=== PATIENT | female | born 1975 | race Caucasian/White ===

== ENCOUNTER → 2019-07-10 07:48 | Outpatient (CLI) | payer BC, SELFPAY ==
--- NOTE | 2019-07-10 07:53 | BI_ITS ---
MAMMOGRAPHY - BILATERAL SCREENING REASON FOR EXAM: Female, 43 years old. Routine annual screening examination. PERTINENT HISTORY: Non-contributory. TECHNIQUE: Digital bilateral breast karie (3D mammographic acquisition) in the CC and MLO projections. 2-D mediolateral oblique (MLO) and craniocaudad (CC) views of both breasts were obtained. CAD: Full Field Digital Mammography with Computer Added Detection was performed. COMPARISON: Comparison is made with prior study dated June 01, 2016 and December 07, 2014. FINDINGS: Breast Composition: The breasts are heterogeneously dense, which may obscure small masses. There are no dominant masses or suspicious calcifications. Stable benign-appearing bilateral axillary lymph nodes. No other significant abnormalities are identified. There has been no significant change since the prior study. BI/SCREEN MAMM (CAD) W/KARIE BILAT IMPRESSION: Stable bilateral screening mammogram. Yearly follow-up mammogram recommended. (A) ASSESSMENT CATEGORY: BIRADS Category 2: Benign. A letter regarding these results will be sent to the patient by the facility within 30 days. Approximately 10% of breast cancers are not detected by mammography. A normal mammogram should not delay biopsy of a clinically suspicious abnormality. [id number] Electronically Signed: Jonathan Pascal, at 8:57 EDT , Service support ,
== END ==
PROVIDERS: PCP Internal Medicine; Referring Provider Internal Medicine; Visit Provider Internal Medicine
DX: Z12.31 Encounter for screening mammogram for malignant neoplasm of breast (principal)
CPT/HCPCS: 77063; 77067

== ENCOUNTER 2021-07-20 05:28 | Day surgery (SDC) | payer BC, SELFPAY ==
[2021-07-20] VITALS (7 sets, daily range): BP systolic 110–132; BP diastolic 67–75; PULSE 16–76; RESP 16; TEMP 36.2–36.6; O2SAT 93–99; BMI 36.1
[2021-07-20] MEDS: Lactated Ringers 1,000 ML 15 ML IV (05:45)
[2021-07-20 06:18] LABS: Internal QC Validated? YES +Cl - CLEAR BKGD; Pregnancy, Urine Negative Negative
--- NOTE | 2021-07-20 06:30 | COLBX_PTH ---
PATIENT: MARISELA EDWARDS LOC: EN U#:[id number] AGE/SX: 45/F ROOM: RE07/20/[address]: Dr. Lui Nichols DO : 1975 BED: DIS: 07/20/2021 SPEC #: [id number] RECD: 07/20/21 16:14 STATUS: ELVIN REAmy #: [id number] [place]: 07/20/21 06:[address]: Lui Nichols DEPT: SURGICAL PATHOLOGY RECD BY: Tono Curiel ENTERED: 07/21/21 09:02 SP TYPE: COLON BX PAT DR: Dr. Julianna Dawson DO Tissues: A - Ileum, NOS B - COLON BIOPSY Procedures: Surgery Specimen Level IV HEADER OPERATION: Colonoscopy (MAC) PRE-OP DIAGNOSIS: Abdominal pain TISSUE SUBMITTED: A ? Terminal ileum biopsy, B ? Random colon biopsy MICROSCOPIC DIAGNOSIS A. Terminal ileum, biopsy: Fragments of small intestinal mucosa, no pathologic diagnosis. B. Colon, random biopsy: Fragments of colonic mucosa with a few pigment laden macrophages, consistent with melanosis coli. MAYELA:amanda 07/24/2021 MICROSCOPIC DESCRIPTION Slides are reviewed. GROSS DESCRIPTION A - Received in fixative is one container labeled with the patient's name and designated terminal ileum biopsy. The specimen consists of one irregular fragment of light pedersen soft tissue that measures 1 x 0.5 x 0.1 cm. The specimen is totally submitted in one cassette. B - Received in fixative is one container labeled with the patient's name and designated random colon biopsy. The specimen consists of multiple irregular fragments of light pedersen soft tissue that in aggregate measure 2.5 x 1 x 0.1 cm. The specimen is totally submitted in one cassette. / MAYELA:amanda 07/21/2021 TC:5 CPT: 24356 x2
--- NOTE | 2021-07-20 06:39 | PCM.HP.BLA ---
History and Physical Date of Admission: 07/20/21 MARISELA EDWARDS, is a 45 F who presents to the office today for abdominal pain. She has a past history of migraines. She has been tried on multiple medicines with mixed results regarding to the control of her migraines. She does take propranolol on a daily basis as a prophylaxis. She was referred by PCP for evaluation of diarrhea with blood, nausea, abdominal cramping/pain following PO intake. She says randomly she can have episodes of feeling faint, dizziness, and lost consciousness with diarrhea episodes. Occurrence July 2020, March 2021 and April 2021. First two occurrences there was blood, not the April episode. Her normal stools are mostly regular with use of Miralax a couple times a month. Does have history of vasovagal responses. First occurrence was during a period of high stress, the other two episodes were not during an abnormal period of stress. She does have a more stressful life with a son who has special needs. Brother and mother both have history of ulcers of unknown location. Medical history includes disc degeneration (meloxicam), insomnia (trazodone), migraine (ubrelvy, Imitrex, propranolol), anxiety (Ativan), hyperlipidemia, obesity. ROS Const Constitutional: No anorexia, fatigue, fever(s), weight change or sleep problems Eyes Eyes: No change in vision ENT ENT: No abnormal hearing, difficulty swallowing, mouth lesions, tongue swelling or throat swelling Resp Respiratory: No cough or shortness of breath Cardio Cardiology: No chest pain at rest, chest pain with exertion, shortness of breath or dyspnea on exertion Gastro GI: No difficulty swallowing Genitourinary-Female: No difficulty urinating or burning urination Musc Musculoskeletal: No joint pain, joint swelling, muscle weakness or decreased muscle mass Skin Skin: No hair loss in leg, yellowing of the eye, itchy eyes, rash, skin ulcer or skin swelling Neuro Neurology: No abnormal hearing, abnormal movements, confusion, unsteady gait/balance or memory loss Psych Psychiatric: No anxiety, No confusion and No memory loss Endo Endocrine: No fatigue or weight change Aller/Imm Allergy/Immunologic: No itchy eyes, throat swelling or tongue swelling Dheeraj/Lymp Hematologic/Lymphatic: No easy bleeding, easy bruising or enlarged lymph nodes Exam Const General: cooperative and comfortable Nutritional Appearance: average body habitus and well nourished HENMT Head: normal to inspection Ears: hearing grossly normal bilaterally Nose: external nose normal Face and sinus: normal facial exam Mouth: oral mucosae normal Throat: posterior oropharynx normal Eyes General: appearance normal, both eyes and all related structures Neck Neck: normal visual inspection Chest Chest palpation & inspection: normal inspection of the chest and normal palpation of entire chest wall Resp Effort & Inspection: normal respiratory effort Auscultation: Bilateral: Clear to Auscultation Cardio Palpation: normal PMI Rate: regular rate Rhythm: regular rhythm GI Inspection: normal to inspection Auscultation: normal bowel sounds Percussion: normal to percussion Palpation: no hepatosplenomegaly Skin General: no rashes or lesions noted Neuro General: patient alert Extrem General: normal to inspection Psych Affect: normal affect Assessment and Plan Assessment and Plan (1) Abdominal pain: Status: Acute Plan - Dr. Poe Friend, DO: Differential diagnosis for episodic abdominal pain in the setting of diarrhea and bloody stools would be intestinal migraines resulting in ischemic colitis. Inflammatory bowel disease ulcerative colitis greater than Crohn's disease. Also in the differential diagnosis would include Behcet's disease, upper GI bleed with rapid transit secondary to NSAID usage for migraine prophylaxis. She should undergo an upper and lower endoscopy to evaluate her upper lower GI tract. I will put her on Levsin for prophylaxis of the symptoms if it is intestinal migraines which she is high risk for due to her history of migraine disorder of the central nervous system. She is okay with this plan we will also do a biochemical analysis to make sure she is not having any signs of acute or chronic inflammation going including amylase lipase, CMP, CBC, ESR, CRP, immunoglobulins A through G,, protein electrophoresis, ANCA and KELLI. Plan Details Other Medications: New: hyoscyamine sulfate (Levsin/SL) 0.125 mg PO BID-QID 30 days PRN 30 tabs 0RF dyspepsia I have re-examined the patient. There are no clinical changes since date of exam.
--- NOTE | 2021-07-20 07:15 | OP.COLON_ITS ---
Patient Name: Julissa Jackson Procedure Date: 07/20/2021 6:19 AM Date of : 1975 Age: 45 Procedure: Colonoscopy Indications: Screening for colorectal malignant neoplasm Providers: Lui Nichols DO Medicines: See the Anesthesia note for documentation of the administered medications Patient Profile: This is a 45 year old female. Refer to note in patient chart for documentation of history and physical. Last Colonoscopy: none. The patient's first colonoscopy is today. Complications: No immediate complications. Procedure: Pre-Anesthesia Assessment: - Prior to the procedure, a History and Physical was performed, and patient medications and allergies were reviewed. The patient is competent. The risks and benefits of the procedure and the sedation options and risks were discussed with the patient. All questions were answered and informed consent was obtained. Patient identification and proposed procedure were verified by the physician in the pre-procedure area. Mental Status Examination: alert and oriented. Airway Examination: normal oropharyngeal airway and neck mobility. Respiratory Examination: clear to auscultation. CV Examination: normal. Prophylactic Antibiotics: The patient does not require prophylactic antibiotics. Prior Anticoagulants: The patient has taken no previous anticoagulant or antiplatelet agents. ASA Grade Assessment: II - A patient with mild systemic disease. After reviewing the risks and benefits, the patient was deemed in satisfactory condition to undergo the procedure. The anesthesia plan was to use moderate sedation / analgesia (conscious sedation). Immediately prior to administration of medications, the patient was re-assessed for adequacy to receive sedatives. The heart rate, respiratory rate, oxygen saturations, blood pressure, adequacy of pulmonary ventilation, and response to care were monitored throughout the procedure. The physical status of the patient was re-assessed after the procedure. After I obtained informed consent, the scope was passed under direct vision. Throughout the procedure, the patient's blood pressure, pulse, and oxygen saturations were monitored continuously. The Colonoscope was introduced through the anus and advanced to the terminal ileum. The colonoscopy was performed without difficulty. The patient tolerated the procedure well. The quality of the bowel preparation was good. Moderate Sedation: Moderate (conscious) sedation was administered by the endoscopy nurse and supervised by the endoscopist. The patient's oxygen saturation, heart rate, blood pressure and response to care were monitored. Total physician intraservice time was 15 minutes. Scope In: 6:47:31 AM Scope Withdrawal Time 0 hours 13 minutes 2 seconds Scope Out: 7:04:44 AM Total Procedure Duration Time 0 hours 17 minutes 13 seconds Findings: The perianal and digital rectal examinations were normal. A 5 mm anal fissure was found in the anal canal. An area of mildly congested mucosa was found in the rectum, in the sigmoid colon, in the descending colon, in the ascending colon and in the cecum. Biopsies were taken with a cold forceps for histology. Verification of patient identification for the specimen was done. Estimated blood loss was minimal. A scattered area of the terminal ileum was congested. Biopsies were taken with a cold forceps for histology. Verification of patient identification for the specimen was done. Estimated blood loss was minimal. Impression: - Anal fissure. - Congested mucosa in the rectum, in the sigmoid colon, in the descending colon, in the ascending colon and in the cecum. Biopsied. - Congested mucosa in the terminal ileum. Biopsied. Recommendation: - Discharge patient to home. - Resume previous diet. - Continue present medications. - Await pathology results. - Repeat colonoscopy in 5 years for surveillance based on pathology results. Procedure Code(s): --- Professional --- 75096, Colonoscopy, flexible; with biopsy, single or multiple 37312, 59, Moderate sedation services provided by the same physician or other qualified health manager long term care performing the diagnostic or therapeutic service that the sedation supports, requiring the presence of an independent trained observer to assist in the monitoring of the patient's level of consciousness and physiological status; initial 15 minutes of intraservice time, patient age 5 years or older CPT copyright 2017 [employer]. All rights reserved. The codes documented in this report are preliminary and upon inpatient coder review may be revised to meet current compliance requirements. Lui Nichols DO 07/20/2021 7:15:02 AM This report has been signed electronically. Number of Addenda: 1 Note Initiated On: 07/20/2021 6:19 AM Addendum Number: 1 Addendum Date: 01/17/2022 6:14:51 AM MAC was used as sedation for this procedure. Lui Nichols DO 01/17/2022 6:14:56 AM This report has been signed electronically.
--- NOTE | 2021-07-20 07:15 | OP.CCLET_ITS ---
01/17/2022 Julianna Dawson [address] [place] [address] Re : Colonoscopy procedure for Julissa Jackson Dear Dr. Dawson This procedure was performed on June. My impressions and recommendations are as follows: Impressions : - Anal fissure. - Congested mucosa in the rectum, in the sigmoid colon, in the descending colon, in the ascending colon and in the cecum. Biopsied. - Congested mucosa in the terminal ileum. Biopsied. Recommendations : - Discharge patient to home. - Resume previous diet. - Continue present medications. - Await pathology results. - Repeat colonoscopy in 5 years for surveillance based on pathology results. My findings are described in the full procedure note, which is enclosed. If I can be of further assistance, please feel free to contact me at . Sincerely, Lui Friend, 07/20/2021 7:15:02 AM This report has been signed electronically.
== END 2021-07-20 23:59 | disposition home or self-care (01) ==
LOC: EN 05:28 → AC 05:31
PROVIDERS: PCP Internal Medicine; Referring Provider Internal Medicine; Visit Provider Internal Medicine Gastroenterology
PROC: 0DJD8ZZ Inspection of Lower Intestinal Tract, Via Natural or Artificial Opening Endoscopic (ICD-10-PCS; CPT 45378; principal; 2021-07-20 06:25)
DX: Z12.11 Encounter for screening for malignant neoplasm of colon (principal); K60.2 Anal fissure, unspecified; K63.89 Other specified diseases of intestine; K21.9 Gastro-esophageal reflux disease without esophagitis; G43.909 Migraine, unspecified, not intractable, without status migrainosus; F41.9 Anxiety disorder, unspecified; E78.5 Hyperlipidemia, unspecified; E66.9 Obesity, unspecified; Z68.36 Body mass index [BMI] 36.0-36.9, adult; Z79.899 Other long term (current) drug therapy
CPT/HCPCS: 45380; 81025; 88305; J7120; J2405

== ENCOUNTER → 2022-11-09 | Outpatient (CLI) | payer BC, SELFPAY ==
--- NOTE | 2022-11-09 10:19 | BI_ITS ---
MAMMOGRAPHY - BILATERAL SCREENING 3-D TOMOSYNTHESIS REASON FOR EXAM: Female, 47 years old. Routine screening PERTINENT HISTORY: No significant family history. TECHNIQUE: 2-D mammograms and 3-D Tomosynthesis of the breast (s) were performed. CAD was performed. COMPARISON: 06/01/2016 FINDINGS: The breast composition is composed of scattered fibroglandular density. Scattered benign calcifications are seen. No dense spiculated masses or suspicious microcalcifications are identified. No architectural distortion is identified. There is no skin thickening or retraction. There has been no significant change since the prior study. BI/SCRN MAMM (CAD)W/KARIE BILAT IMPRESSION: No mammographic signs of malignancy. Routine yearly mammograms recommended. ASSESSMENT CATEGORY: BIRADS Category 2: Benign. A letter regarding these results will be sent to the patient by the facility within 30 days. FOLLOW UP RECOMMENDATION: Yearly follow up mammogram recommended. (A) Approximately 10% of breast cancers are not detected by mammography. A normal mammogram should not delay biopsy of a clinically suspicious abnormality. Electronically Signed: César Smith MD at 12:46 EDT ,
== END | disposition home or self-care (01) ==
LOC: OPBI 10:17
PROVIDERS: PCP Internal Medicine; Referring Provider Internal Medicine; Visit Provider Internal Medicine
DX: Z12.31 Encounter for screening mammogram for malignant neoplasm of breast (principal)
CPT/HCPCS: 77063; 77067

== ENCOUNTER 2023-01-13 03:18 | Emergency (ER) | payer BC, SELFPAY ==
[2023-01-13 03:19] VITALS: BP 132/76; PULSE 62; RESP 16; TEMP 36.4; O2SAT 98; BMI 38.7
--- NOTE | 2023-01-13 03:36 | EDS_ITS ---
HPI HPI - GI History of Present Illness Chief Complaint: Abd Pain Informant: patient and spouse/S.O. Narrative Narrative: Patient presents with diffuse abdominal burning and just not feeling well for the last few hours, and then suddenly when she was going to lay down she states, she started having vertigo. Lying still helps, she denies knowing any obvious triggers for any of the symptoms. She states she was diagnosed with intestinal migraines that gave her similar discomfort in the past but she does not have episodes very often. She states the symptoms are similar, and she had some of the dizziness/vertiginous feelings like she does now with them in the past as well. She saw Dr. Nichols and as a result of him suggesting intestinal migraines, she was given a prescription for hyoscyamine. Therefore she took 1 of those tonight prior to coming here in addition to some Tums, she states it really seemed to help the abdominal pain which is better now but still present. Some nausea no vomiting. She does not have her contacts in but states that her vision does not seem to be majorly changed. When she was more vertiginous at home, she felt like her hearing was muffled in both ears that is better now. She denies tinnitus, headache, syncope, recent illness, injury to her head, or travel out of the area. [facility] Medical History Abdominal pain Alcohol use Anxiety Gastric reflux History of echocardiogram History of stress test Migraine Non-smoker Vasovagal syncope Wears contact lenses Home Medications meloxicam 15 mg tablet 15 mg PO DAILY PRN foot pain 06/27/20 [History Last Taken Unknown] propranolol 60 mg capsule,24 hr,extended release (Inderal LA) 120 mg PO QHS htn 06/27/20 [History Last Taken 07/16/21] ascorbic acid (vitamin C) 500 mg tablet (Vitamin C) 500 mg PO DAILY 07/18/21 [History Last Taken Unknown] cholecalciferol (vitamin D3) 50 mcg (2,000 unit) capsule (Vitamin D3) 50 mcg PO DAILY 07/18/21 [History Last Taken Unknown] lorazepam 1 mg tablet 1 mg PO DAILY PRN PRN Anxiety 07/18/21 [History Last Taken Unknown] omega-3 fatty acids 1,000 mg PO DAILY 07/18/21 [History Last Taken Unknown] trazodone 50 mg tablet 25 mg PO QHS PRN PRN Sleep 07/18/21 [History Last Taken Unknown] ubrogepant 100 mg tablet (Ubrelvy) 100 mg PO DAILY PRN PRN Migraine Headache 07/18/21 [History Last Taken Unknown] hyoscyamine sulfate 0.125 mg sublingual tablet 0.125 mg PO Q8H PRN abdominal distention #30 tabs 10/24/22 [Rx Last Taken Unknown] meclizine 25 mg tablet 25 mg PO Q8H PRN PRN dizziness or vertigo #20 tabs 01/13/23 [Rx Last Taken Unknown] metoclopramide HCl 10 mg tablet 10 mg PO Q6H PRN nausea and vomiting #20 tabs 01/13/23 [Rx Last Taken Unknown] Allergy/AdvReac Type Severity Reaction Status Date / Time codeine AdvReac Upset Verified 01/13/23 03:18 Stomach Family History Other Asthma Surgical History History of back surgery Social History Smoking Status: Never smoker ROS ROS ED Constitutional Constitutional ED: Denies chills or fever(s) Eyes Eyes: Reports other Details: Chronic photophobia ; Denies change in vision or diplopia ENT ENT ED: Reports as per HPI and other Details: Transient muffled hearing bilaterally ; Denies ear pain, rhinorrhea or sore throat Cardiovascular Cardiovascular: Denies chest pain or palpitations Respiratory/Chest Respiratory/Chest: Denies cough or dyspnea Gastrointestinal Gastrointestinal: Reports abdominal pain and nausea; Denies diarrhea, hematemesis, hematochezia, melena or vomiting Genitourinary Genitourinary ED: Denies dysuria or hematuria Musculoskeletal Musculoskeletal: Denies back pain or neck pain Integumentary Denies abscess or rash Neurologic Neurologic: Denies headache(s), paresthesias or weakness Psychiatric Psychiatric: Reports anxiety; Denies suicidal thoughts EXAM Physical Exam Const Vital Signs: 01/13/23 03:19 Temperature 97.5 F L Temperature Source Temporal Pulse Rate 62 Respiratory Rate 16 Blood Pressure 132/76 H Blood Pressure Mean 94 Pulse Ox 98 Oxygen Delivery Method Room Air Positive well nourished and well developed Constitutional Narrative: Has a cold towel wrapped around her head General Appearance ED: well developed and NAD HEENT Reports TM's clear and moist mucous membranes normocephalic and atraumatic Tympanic Membrane ED: Yes TM's clear Eyes PERRL and EOMs intact bilaterally Neck full ROM, no lymphadenopathy and supple Resp normal respiratory effort and clear to auscultation bilaterally Cardio regular rate, regular rhythm and no murmurs GI non-tender and non-distended Auscultation: normoactive bowel sounds Palpation: soft Back/Spine no CVA tenderness General Back: other FROM Extremity normal to inspection General Extremety ED: Negative for edema, pulses abnormal or tenderness General Extremity: Negative for edema or pulses abnormal Neuro oriented x3, CN's II-XII intact bilaterally and no sensory deficits noted Sensorium / Orientation: awake and alert Motor Exam: strength 5/5 throughout Psych Mood & Affect: anxious Skin no rashes or lesions noted and no wounds MDM MDM MDM Narrative Medical decision making narrative: From [address] Nichols's clinic note about intestinal migraines as well as his colonoscopy report from the same month. Patient describing similar symptoms now. She agrees that it seems similar. I do not think she needs an emergent ancillary work-up. Initially treated her with IV fluids, dicyclomine, meclizine, and IV Reglan. She did a lot better, pain resolved, vertigo resolved, still nauseated so we repeated the Reglan 5 mg along with some Benadryl and now she is feeling better without nausea. She feels well enough to go home. We will write her prescription for meclizine and Reglan to use as needed, she has had adverse reactions to Zofran in the past with worsening of pain/headache. Follow-up as needed she is comfortable with this plan. History & Record Review Additional record(s) reviewed:: Prior outpatient record Discharge Plan Triage Chief Complaint: Abd Pain ED Provider: Jesus Buckner Dx/Rx/DC Orders Clinical Impression: Diffuse abdominal pain, Abdominal migraine Instructions: Abdominal Pain Prescriptions: New meclizine [meclizine] 25 mg tablet 25 mg PO Q8H PRN PRN (Reason: dizziness or vertigo) Qty: 20 0RF metoclopramide HCl [metoclopramide HCl] 10 mg tablet 10 mg PO Q6H PRN (Reason: nausea and vomiting) Qty: 20 0RF No Action propranolol [Inderal LA] 60 mg capsule,extended release 24 hr 120 mg PO QHS meloxicam 15 mg tablet 15 mg PO DAILY PRN (Reason: foot pain) hyoscyamine sulfate 0.125 mg tablet, sublingual 0.125 mg PO Q8H PRN (Reason: abdominal distention) Qty: 30 11RF trazodone 50 mg tablet 25 mg PO QHS PRN PRN (Reason: Sleep) Patient Comments: TAKE 1 TO 2 TABLETS BY MOUTH EVERY DAY AT BEDTIME NEEDED ascorbic acid (vitamin C) [Vitamin C] 500 mg Tablet 500 mg PO DAILY lorazepam 1 mg tablet 1 mg PO DAILY PRN PRN (Reason: Anxiety) Patient Comments: TAKE 1/2 TO 1 (ONE-HALF TO ONE) TABLET BY MOUTH ONCE DAILY NEEDED FOR ANXIETY [place] 3 Fish Oil Capsule 1,000 mg PO DAILY cholecalciferol (vitamin D3) [Vitamin D3] 50 mcg (2,000 unit) Capsule 50 mcg PO DAILY Ubrelvy 100 mg tablet 100 mg PO DAILY PRN PRN (Reason: Migraine Headache) Patient Comments: TAKE 1 TABLET BY MOUTH AT ONSET OF HEADACHE, MAY REPEAT IN 2 HOURS IF NOT GONE. MAX 2 TABS PER 24 HOURS Primary Care Provider: Julianna Dawson Referrals: Julianna Dawson DO [Primary Care Provider] - (Or Dr. Nichols as needed if not improving after several days) Disposition Disposition: Home, Self Care
[2023-01-13] MEDS: Meclizine HCl 25 MG Tablet PO (03:45)
[2023-01-13] MEDS: Metoclopramide 10 MG/2 ML Vial 5 MG IV ×2 (03:45→05:12)
[2023-01-13] MEDS: Dicyclomine 10 MG Capsule PO (03:46)
[2023-01-13] MEDS: 0.9% Normal Saline (500mL Bag) 500 ML 999 ML IV (03:53)
[2023-01-13] MEDS: DiphenhydrAMINE 50 MG/ML Syringe 25 MG IV (05:12)
[2023-01-13 06:06] VITALS: PULSE 76; RESP 16; O2SAT 96
== END 2023-01-13 06:06 | disposition home or self-care (01) ==
PROVIDERS: Emergency Provider Emergency Medicine; PCP Internal Medicine; Visit Provider Emergency Medicine
DX: R10.84 Generalized abdominal pain (principal); G43.D0 Abdominal migraine, not intractable; Z79.899 Other long term (current) drug therapy
CPT/HCPCS: 96361; 96374; 96375; 96376; 99283; J7030; A4216

== ENCOUNTER → 2023-01-17 | Outpatient (CLI) | payer BC, SELFPAY ==
[2023-01-17 10:23] LABS: Erythrocyte Sedimentation Rate 16 mm/hr (0-30)
[2023-01-17 10:25] LABS: Absolute Lymphocyte Count 2.12 X10^3/uL (0.83-4.51); Absolute Neutrophil Count 4.4 X10^3/uL (2.0-7.7); Basophil# 0.04 X10^3/uL; Basophil% 0.6 % (0-1); Eosinophil# 0.26 X10^3/uL; Eosinophils% 3.6 % (0-5); Hematocrit 44.3 % (37-47); Hemoglobin 14.6 g/dL (12.0-15.0); Lymphocyte # 2.12 X10^3/ul (0.83-4.51); Lymphocyte % 29.2 % (19-41); Mean Corpuscular Hgb 28.8 pg (27.0-32.0); Mean Corpuscular Volume 87.4 fL (81-99); Mean Platelet Vol. 8.6 fl (6.2-12.0); Monocyte# 0.39 X10^3/uL; Monocyte% 5.4 % (0-10); NRBC Flagged by Analyzer 0 % (0-5); Neutrophil # 4.42 X10^3/uL (2.7-7.7); Neutrophil % 60.8 % (47-70); Platelet Count 220 K/mm3 (150-450); RBC Distribution Width SD 41.4 fl (35.1-43.9); Red Blood Count 5.07 M/mm3 (4.2-5.4); White Blood Count 7.3 K/mm3 (4.4-11.0)
[2023-01-17 10:52] LABS: AST(SGOT) 20 U/L (15-37); Alanine Aminotransfer ALT/SGPT 33 U/L (13-56); Albumin, Serum 3.7 g/dL (3.2-5.0); Alkaline Phosphatase 83 U/L (45-117); Anion Gap 6 (5-15); BUN 11 mg/dL (7-18); BUN/Creat Ratio 11.4 RATIO (10-20); CRP 9.41 mg/L (0.0-3.0); Chloride 105 mmol/L (98-107); Creatinine, Serum 0.97 mg/dL (0.55-1.02); EST Glomerular Filtration Rate 65 mL/min (>60); Est Glom Filt Rate - Afr Amer 79 mL/min (>60); Globulin 3.7 g/dL (2.2-4.2); Glucose 112 mg/dL (74-106); LDH 164 U/L (84-246); Protein, Total 7.4 g/dL (6.4-8.2); Sodium Level 136 mmol/L (136-145)
[2023-01-18 12:09] LABS: Anti-Centromere B Ab <0.2 AI (0.0-0.9); Anti-Chromatin <0.2 AI (0.0-0.9); Anti-Jo <0.2 AI (0.0-0.9); Anti-Scleroderma-70 AB <0.2 AI (0.0-0.9); Anti-dsDNA Ab <1 IU/mL (0-9); RNP Ab <0.2 AI (0.0-0.9); SJOGREN'S Anti-SS-A test < 0.2 AI (0.0-0.9); SJOGREN'S Anti-SS-B test < 0.2 AI (0.0-0.9); Smith Ab <0.2 AI (0.0-0.9)
[2023-01-23 22:07] LABS: Albumin 3.5 g/dL (2.9-4.4); Alpha-1-Globulins 0.3 g/dL (0.0-0.4); Alpha-2-Globulins 0.8 g/dL (0.4-1.0); Cytoplasmic Ab (C-ANCA) <1:20 titer (Neg:<1:20); Endomysial Antibody IgA Negative (Negative); Gamma Globulin 0.9 g/dL (0.4-1.8); Immunoglobulin A 133 mg/dL (87-352); Immunoglobulin E 5 IU/mL (6-495); Immunoglobulin G 826 mg/dL (586-1602); Immunoglobulin M 115 mg/dL (26-217); PROEL- TOTAL PROTEIN 6.7 g/dL (6.0-8.5); Perinuclear Ab (P-ANCA) <1:20 titer (Neg:<1:20); t-Transglutaminase IgA <2 U/mL (0-3)
== END | disposition home or self-care (01) ==
LOC: LAB 09:42
PROVIDERS: PCP Internal Medicine; Referring Provider Internal Medicine Gastroenterology; Visit Provider Internal Medicine Gastroenterology
DX: K58.9 Irritable bowel syndrome, unspecified (principal); R10.84 Generalized abdominal pain
CPT/HCPCS: 36415; 80053; 82784; 82785; 83516; 83615; 84165; 85025; 85652; 86140; 86225; 86235; 86255; 86256; 86334

== ENCOUNTER → 2023-01-18 | Outpatient (CLI) | payer BC, SELFPAY ==
[2023-01-25 14:09] LABS: Pancreatic Elastase, Fecal > 500 (>200)
[2023-01-28 19:07] LABS: Calprotectin, Stool 9 ug/g (0-120); Fats, Neutral Normal (.); Fats, Total Normal (.)
== END | disposition home or self-care (01) ==
LOC: LAB 09:55
PROVIDERS: PCP Internal Medicine; Referring Provider Internal Medicine Gastroenterology; Visit Provider Internal Medicine Gastroenterology
DX: K58.9 Irritable bowel syndrome, unspecified (principal); R10.84 Generalized abdominal pain
CPT/HCPCS: 82653; 82705; 83630; 83993; 87177; 87209; 87329; 87506

== ENCOUNTER → 2023-02-18 | Outpatient (CLI) | payer BC, SELFPAY ==
--- NOTE | 2023-02-18 08:17 | US_ITS ---
STUDY: ABDOMINAL ULTRASOUND REASON FOR EXAM: Female, 47 years old. IBS, abdominal pain TECHNIQUE: Transabdominal ultrasound was performed with real-time and static hannah scale imaging. TECHNICAL QUALITY: Adequate. COMPARISON: None. FINDINGS: Liver: The liver is mildly enlarged and measures 17.5 cm. There is increased echogenicity consistent with fatty infiltration. The bile ducts are within normal limits. There is hepatic color flow. The direction of portal flow is hepatopetal. There is no demonstrated mass lesion. Portal vein measurement: Gallbladder: Normal distended gallbladder. The gallbladder wall measures 1.5 mm. There is a negative sonographic Jasso''s sign. There is no pericholecystic fluid. There are no gallstones. Small amount of sludge is seen along the dependent portion of the gallbladder lumen. Common Bile Duct (C.B.D.): The common bile duct measures 5.0 mm. Pancreas: Normal size of the head, body and tail of the pancreas. There is increased echogenicity of the pancreas. There is no demonstrated pancreatic mass or cyst. Spleen: Normal size of the spleen. The spleen measures 10.1 cm x 5.4 cm x 4.8 cm. Right Kidney: Normal size of the right kidney. The right kidney measures 10.5 cm x 5.5 cm x 4.2 cm. Normal renal cortex. The right cortex measures 1.2 cm. There is no demonstrated renal mass or cyst. There is no right hydronephrosis. Left Kidney: Normal size of the left kidney. The left kidney measures 10.5 cm x 4.4 cm x 5.6 cm. Normal renal cortex. The left cortex measures 1.5 cm. There is no demonstrated renal mass or cyst. There is no left hydronephrosis. Aorta: Unremarkable. I.V.C.: The IVC is patent. There is no ascites. US/Abdomen Complete IMPRESSION: Mild hepatomegaly and fatty infiltration of the liver. Small amount of sludge is seen along the dependent portion of the gallbladder lumen. Electronically Signed: Jonathan Pascal MD at 14:58 EDT ,
== END | disposition home or self-care (01) ==
PROVIDERS: PCP Internal Medicine; Referring Provider Internal Medicine Gastroenterology; Visit Provider Internal Medicine Gastroenterology
DX: K58.9 Irritable bowel syndrome, unspecified (principal); R10.9 Unspecified abdominal pain
CPT/HCPCS: 76700

== ENCOUNTER → 2023-03-20 | Outpatient (CLI) | payer BC, SELFPAY ==
--- NOTE | 2023-03-20 16:55 | CT_ITS ---
STUDY: CT ABDOMEN AND PELVIS WITH CONTRAST REASON FOR EXAM: Female, 47 years old. IBS. Abdominal pain. Syncope. RADIATION DOSAGE (If Supplied By Facility): CTDIvol = ( 16.57 ) mGy, DLP = ( 1270.33 ) mGycm TECHNIQUE: Transaxial images were obtained from the dome of the diaphragm to the symphysis pubis with oral contrast. Oral and amp;amp; IV Readi-CAT and amp;amp; 100mL Isovue-370 was administered. Sagittal and coronal images were reconstructed. Individualized dose optimization techniques were used for this CT. COMPARISON: Comparison is made with prior sonogram of the abdomen dated February 18, 2023. FINDINGS: The visualized lung bases are unremarkable. The visualized portions of the heart are within normal limits. There is decreased attenuation of the liver consistent with steatosis. Normal gallbladder and extrahepatic biliary system. Normal spleen. Normal pancreas. Normal bilateral adrenal glands. Normal right kidney. Normal left kidney. Normal visualized stomach. Normal small intestine. There are scattered colonic diverticula consistent with diverticulosis. The appendix is visualized and appears normal. Normal abdominal aorta. Normal inferior vena cava. Normal retroperitoneum. Normal urinary bladder. IUD seen within the endometrium. Follicles are seen in the right orbit. Normal abdominal wall. This space narrowing and degeneration at the L4-L5 and L5-S1. CT/Abdomen/Pelvis WITH Contrast IMPRESSION: Fatty infiltration of the liver. Right ovarian follicles. Sigmoid diverticula. IUD is seen within the endometrium. Electronically Signed: Jonathan Pascal MD at 13:51 EST ,
== END | disposition home or self-care (01) ==
PROVIDERS: PCP Internal Medicine; Referring Provider Internal Medicine Gastroenterology; Visit Provider Internal Medicine Gastroenterology
DX: K58.9 Irritable bowel syndrome, unspecified (principal); R10.9 Unspecified abdominal pain
CPT/HCPCS: 74177; Q9967